=== PATIENT | male | born 1985 | race Hispanic/Latino ===

== ENCOUNTER 2024-02-15 14:10 | Emergency (ER) | payer SELFPAY ==
--- NOTE | ~2024-02-15 | XR_ITS ---
XR finger 2nd LT min 2V Ordering provider: Daisy Montelongo MD History: . open fx? left 2nd digit, distal lac. vs circular saw . Comparison: None. FINDINGS: BONES: Fracture of the tip of the distal phalanx of the second finger. JOINT SPACES: Normal. SOFT TISSUES: Soft tissue loss is seen anteriorly in the area of the fracture. IMPRESSION: Fracture of the tip of the distal phalanx of the second finger. Reviewed, dictated and finalized at location A.
[2024-02-15 14:22] VITALS: BP 124/76; PULSE 87; RESP 16; TEMP 36.4; O2SAT 99
--- NOTE | 2024-02-15 15:15 | ED.WOUNDLAC ---
HPI - Wound/Laceration General Chief Complaint: Wound/Laceration Stated Complaint: hand lac Time Seen by Provider: 02/15/24 15:06 History of Present Illness HPI narrative: Patient is a 38-year-old male presenting with a finger laceration. Patient was using a power saw when he accidentally hit his left index finger with a saw sustaining a finger tip avulsion. States bleeding is controlled and denies significant pain. States tetanus is up-to-date. Related Data Allergies Allergy/AdvReac Type Severity Reaction Status Date / Time No Known Allergies Allergy Verified 02/15/24 18:01 Exam Narrative: GENERAL: Well-appearing, in no acute distress, pleasant cooperative HEAD: Normocephalic, atraumatic. EYES: PERRLA and EOMI. ENT: Mucous membranes moist. NECK: Supple. CHEST: No respiratory distress. HEART: Regular rate and rhythm EXTREMITIES: left index finger with avulsed finger pad; bleeding is controlled, nail is intact, sensation and ROM intact SKIN: Warm, dry, as above NEURO: Alert and oriented x3. PSYCH: Normal mood and affect. Course Vital Signs Vital signs: Vital Signs Temperature 97.6 F 02/15/24 14:22 Pulse Rate 87 02/15/24 14:22 Respiratory Rate 16 02/15/24 14:22 Blood Pressure 124/76 02/15/24 14:22 Pulse Oximetry 99 02/15/24 14:22 Temperature 97.6 F 02/15/24 14:22 Pulse Rate 87 02/15/24 14:22 Respiratory Rate 16 02/15/24 14:22 Blood Pressure 124/76 02/15/24 14:22 Pulse Oximetry 99 02/15/24 14:22 MDM - Wound/Laceration MDM Narrative Medical decision making narrative: 38-year-old male presenting with an avulsed fingertip due to a power saw. Exam remarkable for the above. Patient is right-handed. X-ray shows a fracture of the tip of the distal phalanx of the 2nd finger. I spoke with Hand surgery who advises saline/Betadine/peroxide soak followed by nonstick clean dressing and Keflex. He can follow up in [facility] next week. Patient is agreeable with this plan. Differential Diagnosis Differential diagnosis: Likely laceration and avulsion of skin Medical Records Attestation: I reviewed the patient's medical records. Imaging Data Radiologist's impression: ITS Impressions Finger X-Ray 02/15/24 14:43 IMPRESSION: Fracture of the tip of the distal phalanx of the second finger. Critical Care Time Critical Care Time Critical Care Time: No Discharge Plan Discharge Clinical Impression: Finger avulsion, Open fracture of phalanx of finger Patient Disposition: Home, Self-Care Condition: Stable Instructions: Antibiotic Form, Skin Avulsion (ED) Additional Instructions: Mantenga el dedo limpio y seco abby los pr?ximos 2 d?as. El viernes podr? cambiarse el vendaje con los materiales proporcionados. Por favor complete los antibi?ticos seg?n lo prescrito. Cambie ybarra vendaje cada 2 d?as y realice un seguimiento de cerca con el cirujano de mano al n?brad que aparece a continuaci?n. Si presenta un dolor que empeora, fiebre, enrojecimiento u otros s?ntomas preocupantes, regrese a la sanjiv de emergencias. Patient Language: Danish Prescriptions: New cephalexin 500 mg capsule 500 mg PO Q6H 10 Days Qty: 40 0RF Follow-up/Referrals: Juliet Dias MD [Physician] - PHYSICIAN,SENIOR QUALITY ASSURANCE ENGINEER [Primary Care Provider] -
[2024-02-15] MEDS: CEPHALEXIN 500 MG CAPSULE PO (18:03)
== END 2024-02-15 18:10 | disposition home or self-care (01) ==
PROVIDERS: Emergency Provider Emergency Medicine
DX: S62.630B Displaced fracture of distal phalanx of right index finger, initial encounter for open fracture (principal); W27.0XXA Contact with workbench tool, initial encounter
CPT/HCPCS: 73140; 99283; A9270